=== PATIENT | male | born 1965 | race Caucasian/White ===

== ENCOUNTER 2020-06-18 21:19 | Inpatient (IN) | payer OTHER ==
[~2020-06-18] VITALS: Ht 193 cm; Wt 88.1 kg
--- NOTE | ~2020-06-18 | CON ---
[address] [address] CONSULTATION Name: HÉCTOR SOLIS Room: [address] IN M.R.#: [id number] Admission: 06/19/20 Attend Phys: Parish Rodrigez, Discharge: Date of : 69 Report #: [id number] THIS REPORT FOR: //name// cc: KESHIA Maldonado family physician/PCP KESHIA Maldonado family physician/PCP ~ THIS REPORT FOR: //name// CC: KESHIA physician/PCP Parish Rodrigez DATE OF SERVICE: 06/21/2020 REQUESTING PHYSICIAN: Parish Rodrigez MD INDICATION FOR PROCEDURE: Right upper quadrant abdominal pain and nausea. HISTORY OF PRESENT ILLNESS: This is a 55-year-old male with known history of end-stage liver disease, who presented with right upper quadrant abdominal pain, nausea and vomiting. The patient denies any lower GI symptoms as he denies diarrhea, constipation, hematochezia or melena. He reports that he in followed in [place] in reference to his liver disease. PAST MEDICAL HISTORY: Significant for history of end-stage liver disease, cholelithiasis, insomnia, gastroesophageal reflux disease, anxiety, and intermittent right upper quadrant pain. ALLERGIES: No known drug allergy. MEDICATIONS: Please refer to MAR. SOCIAL HISTORY: The patient denies tobaccoism, used to drink, but his last drink was more than 5 years ago. He has end-stage liver disease for which he follows in [facility]. FAMILY HISTORY: Noncontributory. PHYSICAL EXAMINATION: VITAL SIGNS: Reveals blood pressure of 108/56, respiration 18, pulse 54, temperature 37.7. LUNGS: Clear. CARDIOVASCULAR: Regular. ABDOMEN: Soft, mildly tender to deep palpation in the right upper quadrant. Bowel sounds are positive. NEUROLOGIC: The patient is alert and oriented x 3. [place] [address] CONSULTATION Name: HÉCTOR SOLIS Room: [address] IN [facility]#: [id number] Admission: 06/19/20 Attend Phys: Parish Rodrigez, Discharge: Date of : 69 Report #: [id number] LABORATORY DATA: Reveal WBC of 8.8, hemoglobin is 12.4 with platelet of 154. AST is 11, ALT 17, total bilirubin is 0.4, alkaline phosphatase 66, albumin 2.9. Viral hepatitis serology is negative. IMAGING: CT of abdomen and pelvis was obtained on admission. This was significant for evidence of chronic liver disease and cirrhosis and recanalization of the umbilical vein consistent with portal hypertension. There is also mildly enlarged spleen noted. There is a large calcified gallstone in the gallbladder. There is no evidence of small-bowel obstruction. There is mild degenerative disk disease noted. Abdominal ultrasound was obtained as well. This showed liver measuring 14 cm without any focal masses. Poorly visualized gallbladder due to bowel gas and the patient's body habitus. The bile duct was not seen well in the study. ASSESSMENT AND PLAN: The patient will need a gallbladder surgery. The patient is being followed in [facility]. Surgery is on board due to his portal hypertension and enlarge umbilical vein due to portal hypertension. We will have him follow up with [place] in reference to possible need for cholecystectomy. The patient is currently pain free and tolerating diet. We will sign off and have the patient followup in [place]. By: [id number] Jennings MD /nt
[~2020-06-18 21:19] MED LIST: AMBIEN 5 MG TABL5 M1 PO; ATIVAN1 MG; ATIVAN1 MG PO; BACTRIM DS TAB1 EACH PO; BENADRYL25 MG PO; BUSPIRONE HCL10 MG PO; CENTRUM SILVER1 EAC4 PO; EFFEXOR 5050 MG/1 T1 PO; LEXAPRO20 MG; PREVACID 15 MG15 M4 DISSOLVE; PROTONIX40 M1 PO; TRINATE TABLET1 TAB PO; VITAMIN B-1100 M1 PO; XANAX 0.5 MG0.5 MG PO; XANAX1 MG PO; ZOFRAN ODT4 MG PO; [UNRECOGNIZED DRUG - OTHER]
[2020-06-18 21:29] VITALS: BP 164/78
[2020-06-18] MEDS ORDERED: GRALISE300 MG PO (21:37)
[2020-06-18] MEDS ORDERED: EFFER-K 20 MEQ20 ME1 PO (21:37)
[2020-06-18] MEDS ORDERED: KRISTALOSE20 GM PO (21:37)
[2020-06-18] MEDS ORDERED: INDERAL LA120 M1 PO (21:38)
[2020-06-18] MEDS ORDERED: LASIX 40 MG TAB40 M1 PO (21:38)
[2020-06-18] MEDS ORDERED: PERCOCET 10-321 EAC1 PO (21:39)
[2020-06-19 00:34] LABS: HEMATOCRIT 43.4 % (42.0-52.0); HEMOGLOBIN 15.3 gm/dL (14.0-18.0); MCH 32.1 pg (26.0-34.0); MCHC 35.2 g/dL (28.0-37.0); MCV 91.1 fL (80.0-100.0); NUCLEATED RBCS 0 /100WBC; PLATELET COUNT* 169 thou/uL (150-400); RBC 4.76 mil/uL (4.50-6.00); RDW-CV 13.1 % (10.5-14.5); WBC 11.4 thou/uL (4.0-11.0)
[2020-06-19 00:37] LABS: ANION GAP 10 mmol/L (7-16); BUN 22 mg/dL (7-18); CALCIUM 9.6 mg/dL (8.5-10.1); CHLORIDE 98 mmol/L (98-107); CO2 28 mmol/L (21-32); GLUCOSE 129 mg/dL (70-99); POTASSIUM 4.1 mmol/L (3.5-5.1); SODIUM 136 mmol/L (136-145)
[2020-06-19 00:42] LABS: ALBUMIN 4.2 g/dL (3.4-5.0); ALKALINE PHOSPHATASE 98 U/L (46-116); LIPASE 173 U/L (73-393); MAGNESIUM 1.9 mg/dL (1.8-2.4); SGOT 16 U/L (15-37); SGPT 24 U/L (30-65); TOTAL BILIRUBIN 0.7 mg/dL (<0.1-1.0); TOTAL PROTEIN 8.7 g/dL (6.4-8.2)
[2020-06-19 00:45] LABS: AMMONIA < 10 umol/L (11-32)
[2020-06-19 01:31] LABS: ABSOLUTE MONOCYTES 0.2 thou/uL (0.0-1.2); ABSOLUTE NEUTROPHILS 10.1 thou/uL (1.6-8.1)
[2020-06-19 01:32] LABS: PLATELET ESTIMATE ADEQUATE; TOXIC GRANULATION 1+
[2020-06-19 07:15] VITALS: BP 164/81
[2020-06-19 07:30] VITALS: BP 157/68
[2020-06-19 13:40] LABS: INR 1.1; PROTIME 11.5 Seconds (9.20-11.50)
[2020-06-19 16:02] VITALS: BP 151/63
[2020-06-19 21:10] VITALS: BP 149/79
[2020-06-20 05:14] LABS: HEMATOCRIT 39.4 % (42.0-52.0); HEMOGLOBIN 13.7 gm/dL (14.0-18.0); MCH 31.9 pg (26.0-34.0); MCHC 34.7 g/dL (28.0-37.0); MCV 91.8 fL (80.0-100.0); MPV 10.6 fl. (7.2-11.1); RBC 4.29 mil/uL (4.50-6.00); RDW-CV 13.1 % (10.5-14.5); WBC 11.1 thou/uL (4.0-11.0)
[2020-06-20 05:53] LABS: ALBUMIN 3.3 g/dL (3.4-5.0); CALCIUM 8.7 mg/dL (8.5-10.1); CREATININE 0.7 mg/dL (0.6-1.3); TOTAL BILIRUBIN 0.7 mg/dL (<0.1-1.0); TOTAL PROTEIN 7.2 g/dL (6.4-8.2)
[2020-06-20 08:00] VITALS: BP 147/59
[2020-06-20 17:35] VITALS: BP 104/57
[2020-06-20 21:24] VITALS: BP 120/69
[2020-06-21 04:21] LABS: HEMATOCRIT 35.5 % (42.0-52.0); HEMOGLOBIN 12.4 gm/dL (14.0-18.0); MCH 32.4 pg (26.0-34.0); MCV 92.4 fL (80.0-100.0); MPV 10.5 fl. (7.2-11.1); RBC 3.84 mil/uL (4.50-6.00); RDW-CV 13.1 % (10.5-14.5); WBC 8.8 thou/uL (4.0-11.0)
[2020-06-21 05:02] LABS: ALBUMIN 2.9 g/dL (3.4-5.0); CALCIUM 8.3 mg/dL (8.5-10.1); CREATININE 1.1 mg/dL (0.6-1.3); MAGNESIUM 1.8 mg/dL (1.8-2.4); POTASSIUM 3.8 mmol/L (3.5-5.1); TOTAL BILIRUBIN 0.4 mg/dL (<0.1-1.0); TOTAL PROTEIN 6.3 g/dL (6.4-8.2)
[2020-06-21 07:07] LABS: HEPATITIS B SURFACE AG Negative (Negative)
[2020-06-21 08:00] VITALS: BP 108/56
[2020-06-21] MEDS ORDERED: TRANSDERM-SCOP1 EACH TRANSDERM (08:41)
[2020-06-21 14:29] VITALS: BP 108/56
[2020-06-21 15:08] VITALS: BP 108/56
[2020-06-21 17:41] VITALS: BP 108/56
== END 2020-06-21 16:45 | disposition home or self-care (01) | DRG 445 ==
LOC: M.ERS 21:19 → M.TBA-ER 06-19 05:05 → M.ORTHSURG 06-19 05:05
PROVIDERS: Emergency Medicine; Internal Medicine; Surgery; ADMIT Family Medicine; ATTEND Family Medicine
DX: K80.20 Calculus of gallbladder without cholecystitis without obstruction (principal); R65.10 Systemic inflammatory response syndrome (SIRS) of non-infectious origin without acute organ dysfunction; K76.6 Portal hypertension; F41.9 Anxiety disorder, unspecified; R19.7 Diarrhea, unspecified; K72.90 Hepatic failure, unspecified without coma; G89.29 Other chronic pain; K74.60 Unspecified cirrhosis of liver; F10.21 Alcohol dependence, in remission; N18.9 Chronic kidney disease, unspecified; Z20.828 Contact with and (suspected) exposure to other viral communicable diseases; Z79.899 Other long term (current) drug therapy